=== PATIENT | male | born 1960 | race Caucasian/White ===

== ENCOUNTER → 2017-12-12 07:05 | Outpatient (CLI) | payer OTHER, SELFPAY ==
[2017-12-12 08:10] LABS: AST(SGOT) 14 U/L (15-37); Alanine Aminotransfer ALT/SGPT 25 U/L (16-61); Cholesterol 172 mg/dL (200); High Density Lipoprotein 33 mg/dL; Triglycerides 113 mg/dL; Very Low Density Lipoprotein 23 mg/dL (5-40)
== END ==
PROVIDERS: Family Provider Family Medicine; PCP Family Medicine; Referring Provider Family Medicine; Visit Provider Family Medicine
DX: Z00.00 Encounter for general adult medical examination without abnormal findings (principal); Z12.5 Encounter for screening for malignant neoplasm of prostate; E78.00 Pure hypercholesterolemia, unspecified
CPT/HCPCS: 36415; 80061; 84153; 84450; 84460; G0103

== ENCOUNTER → 2018-12-03 16:58 | Outpatient (CLI) | payer OTHER, SELFPAY ==
[2016-03-21 19:09] VITALS: BMI 29.2
--- NOTE | 2018-12-03 17:01 | RAD_ITS ---
HISTORY: GROIN AND LATERAL PAIN, NKI EXAMINATION/TECHNIQUE: XR AP pelvis and left hip 3 views COMPARISON: None FINDINGS: No fracture, acute disease, or suspicious lesion. The sacroiliac and hip joints appear preserved. No bony erosions. Pelvic phleboliths. Incomplete fusion of the posterior elements of L5. RAD/HIP, UNI W/ Pelvis 2-3 Views IMPRESSION: Negative exam. Normal left hip. at 2250 Reported and signed by: Lupillo Stahl MD Electronically Signed: Lupillo Stahl, at 22:48 EDT Tel , Service support ,
--- NOTE | 2018-12-03 17:01 | RAD_ITS ---
STUDY: X-RAY - LEFT KNEE REASON FOR EXAM: Male, 58 years old. Left knee pain TECHNIQUE: 4 view(s) of the knee. COMPARISON: 06/21/2015 FINDINGS: Normal visualized distal femur. Normal visualized proximal tibia and fibula. Normal proximal tibiofibular articulation. Mild patella chester. Minimal degenerative change of the medial compartment and mild degenerative change of the patellofemoral compartment. Normal lateral femorotibial compartment. No knee joint effusion. The soft tissue structures are unremarkable. RAD/Knee 4 or More Views IMPRESSION: Medial and patellofemoral compartment osteoarthritic change with mild associated patella chester, all unchanged from prior imaging. Electronically Signed: Justo Mitchell MD at 4:35 EDT Tel , Service support ,
== END ==
PROVIDERS: Family Provider Family Medicine; PCP Family Medicine; Referring Provider Family Medicine; Visit Provider Family Medicine
DX: M25.552 Pain in left hip (principal); M17.12 Unilateral primary osteoarthritis, left knee
CPT/HCPCS: 73502; 73564

== ENCOUNTER → 2019-03-03 07:01 | Outpatient (CLI) | payer OTHER, SELFPAY ==
[2019-03-03 10:54] LABS: Cholesterol 182 mg/dL (200); High Density Lipoprotein 38 mg/dL; PSA,Total - Annual Screen 4.15 ng/mL (0.00-4.00); Triglycerides 132 mg/dL; Very Low Density Lipoprotein 26 mg/dL (5-40)
== END ==
PROVIDERS: Family Provider Family Medicine; PCP Family Medicine; Referring Provider Family Medicine; Visit Provider Family Medicine
DX: Z00.00 Encounter for general adult medical examination without abnormal findings (principal)
CPT/HCPCS: 36415; 80061; 84153; G0103

== ENCOUNTER 2019-04-29 05:23 | Day surgery (SDC) | payer OTHER, SELFPAY ==
[2019-04-29] VITALS (11 sets, daily range): BP systolic 98–152; BP diastolic 22–96; PULSE 56–63; RESP 16; TEMP 36.3–36.7; O2SAT 94–100; BMI 27.9
[2019-04-29] MEDS: Lactated Ringers 1,000 ML 75 ML IV (06:06)
--- NOTE | 2019-04-29 06:11 | PCM.HP.STD ---
Problem List (1) Screening for intestinal cancer Status: Acute History of Present Illness Date of Admission: 04/29/19 The patient is a 58 year old M who presents for screening colonoscopy today. He has had a previous colonoscopy about 10 years ago. He denies bright red blood per rectum or melena. He has not any abdominal pain. No change in body habitus. No family or personal history of colon polyps or colon cancer. He has had a previous history of lower extremity deep venous thrombosis. That is not current and is not currently on any anticoagulants Past Medical History Allergies No Known Allergies Allergy (Verified 04/26/19 12:01) Home Medications: Ambulatory Orders Medication Instructions Recorded Multivitamins,Therapeutic 1 tablet PO DAILY 03/06/13 [Multivitamin] Aspirin 81 mg PO QHS 03/21/16 Smoking Status: Never smoker Tobacco Use: Non-smoker Review of Systems Constitutional: Denies: Anorexia Cardiovascular: Denies: Chest Pain Gastrointestinal: Denies: Abdominal Pain, Melena Endocrine: Denies: Change in Body Habitus VTE Information - Inpt Only VTE Present on Admission: No Patient Problems: Active and Suspected Problems Screening for intestinal cancer (Acute) - Physical Exam Vitals/I&O's: Vital Signs Temp Pulse Resp BP Pulse Ox 97.7 F L 61 16 126/83 H 100 04/29/19 05:45 04/29/19 05:45 04/29/19 05:45 04/29/19 05:45 04/29/19 05:45 Oxygen Delivery Method Room Air Weight: 200 lb 2.876 oz Body Mass Index (BMI) 27.9 General: Alert, Oriented x3, Cooperative, No apparent distress HEENT: Atraumatic Oral: Moist Mucosa Lungs: Clear to auscultation, Normal air movement Cardiovascular: Regular rate, Regular Rhythm Abdomen: Bowel Sounds Present, Soft, Non Tender, Non-Distended Extremities: No Calf Tenderness Psych/Mental Status: Normal Affect Current Medications Lactated Ringer's () 1,000 mls @ 75 mls/hr IV .[id number] [facility] Last Admin: 04/29/19 06:06 Dose: 75 mls/hr Documented by: Assessment/Plan All Active Problems Screening for intestinal cancer (Acute) I recommend to the patient a screening colonoscopy with possible biopsy or polypectomy is indicated. He is aware of the technique, benefit, risks, alternatives. He has had an opportunity to ask and have questions answered. He presents via our open access program today. Jose Wright M.D., F.A.C.S.
--- NOTE | 2019-04-29 06:30 | COLBX_PTH ---
PATIENT: PRASHANT AUGUST LOC: EN U#:[id number] AGE/SX: 58/M ROOM: RE04/29/[address]: Dr. Jose Wright MD : 1960 BED: DIS: 04/29/2019 SPEC #: [id number] RECD: 04/29/19 11:23 STATUS: SONALI JERONIMO #: [id number] MARIA A: 04/29/19 06:[address]: Jose Wright DEPT: SURGICAL PATHOLOGY RECD BY: Miki Rahman ENTERED: 04/29/19 13:18 SP TYPE: COLON BX OTHR DR: Dr. Paige Vale MD Tissues: Transverse colon Procedures: Surgery Specimen Level IV HEADER OPERATION: Colonoscopy - open access (MOD) PRE-OP DIAGNOSIS: Screening TISSUE SUBMITTED: Transverse colon biopsy MICROSCOPIC DIAGNOSIS Transverse colon, biopsy: Tubular adenoma. AM:gabriela 05/02/19 MICROSCOPIC DESCRIPTION Slides are reviewed. GROSS DESCRIPTION Received in fixative is one container labeled with the patient's name and designated transverse colon biopsy. The specimen consists of two irregular fragments of light villaseñor soft tissue that in aggregate measure 0.5 x 0.5 x 0.1 cm. The specimen is totally submitted in one cassette. / AM:gabriela 04/29/19 TC:5 CPT: 23702
--- NOTE | 2019-04-29 06:51 | OP.CCLET_ITS ---
04/29/2019 Paige Vale [address] [place] [address] Re : Colonoscopy procedure for Javon Robles Dear Dr. Vale This procedure was performed on Monday, April 29, 2019. My impressions and recommendations are as follows: Impressions : - Minimally symmetric enlarged prostate found on digital rectal exam. - One 4 mm polyp in the mid transverse colon, removed with a cold biopsy forceps. Resected and retrieved. - Diverticulosis in the sigmoid colon. Recommendations : - Discharge patient to home. - Resume previous diet. - Continue present medications. - Repeat colonoscopy in 5 years for surveillance based on pathology results. - Telephone my office for pathology results in 1 week. My findings are described in the full procedure note, which is enclosed. If I can be of further assistance, please feel free to contact me at Doctor phone number(s): Work: . Sincerely, Jose Wright MD 04/29/2019 6:50:30 AM This report has been signed electronically.
--- NOTE | 2019-04-29 06:51 | OP.COLON_ITS ---
Patient Name: Javon Robles Procedure Date: 04/29/2019 6:10 AM Date of : 1960 Age: 58 Procedure: Colonoscopy Indications: Screening for colorectal malignant neoplasm Providers: Jose Wright MD Referring MD: Paige Vale Medicines: Midazolam 4 mg IV, Meperidine 100 mg IV Patient Profile: Last Colonoscopy: 10 years ago. Complications: No immediate complications. Procedure: Pre-Anesthesia Assessment: - Prior to the procedure, a History and Physical was performed, and patient medications and allergies were reviewed. The patient's tolerance of previous anesthesia was also reviewed. The risks and benefits of the procedure and the sedation options and risks were discussed with the patient. All questions were answered, and informed consent was obtained. Prior Anticoagulants: The patient has taken no previous anticoagulant or antiplatelet agents. ASA Grade Assessment: II - A patient with mild systemic disease. After reviewing the risks and benefits, the patient was deemed in satisfactory condition to undergo the procedure. After I obtained informed consent, the scope was passed under direct vision. Throughout the procedure, the patient's blood pressure, pulse, and oxygen saturations were monitored continuously. The pediatric colonoscope was introduced through the anus and advanced to the cecum, identified by appendiceal orifice and ileocecal valve. The colonoscopy was performed without difficulty. The patient tolerated the procedure well. The quality of the bowel preparation was adequate to identify polyps. The ileocecal valve and the appendiceal orifice were photographed. Moderate Sedation: Moderate (conscious) sedation was personally administered by the endoscopist. The following parameters were monitored: oxygen saturation, heart rate, blood pressure, and response to care. Total physician intraservice time was 15 minutes. Scope In: 6:31:47 AM Scope Withdrawal Time 0 hours 8 minutes 57 seconds Scope Out: 6:45:31 AM Total Procedure Duration Time 0 hours 13 minutes 44 seconds Findings: The digital rectal exam findings include enlarged prostate. A 4 mm polyp was found in the mid transverse colon. The polyp was sessile. The polyp was removed with a cold biopsy forceps. Resection and retrieval were complete. Scattered diverticula were found in the sigmoid colon. Impression: - Minimally symmetric enlarged prostate found on digital rectal exam. - One 4 mm polyp in the mid transverse colon, removed with a cold biopsy forceps. Resected and retrieved. - Diverticulosis in the sigmoid colon. Recommendation: - Discharge patient to home. - Resume previous diet. - Continue present medications. - Repeat colonoscopy in 5 years for surveillance based on pathology results. - Telephone my office for pathology results in 1 week. Procedure Code(s): --- Professional --- 78435, Colonoscopy, flexible; with biopsy, single or multiple 21354, 59, Moderate sedation services provided by the same physician or other qualified health transitional care liaison performing the diagnostic or therapeutic service that the sedation supports, requiring the presence of an independent trained observer to assist in the monitoring of the patient's level of consciousness and physiological status; initial 15 minutes of intraservice time, patient age 5 years or older Diagnosis Code(s): --- Professional --- Z12.11, Encounter for screening for malignant neoplasm of colon D12.3, Benign neoplasm of transverse colon (hepatic flexure or splenic flexure) N40.0, Benign prostatic hyperplasia without lower urinary tract symptoms K57.30, Diverticulosis of large intestine without perforation or abscess without bleeding CPT copyright 2017 [employer]. All rights reserved. The codes documented in this report are preliminary and upon batch trucker review may be revised to meet current compliance requirements. Jose Wright MD 04/29/2019 6:50:30 AM This report has been signed electronically. Number of Addenda: 0 Note Initiated On: 04/29/2019 6:10 AM
== END 2019-04-29 07:40 | disposition home or self-care (01) ==
LOC: EN 05:23 → AC 05:25
PROVIDERS: Family Provider Family Medicine; PCP Family Medicine; Referring Provider Family Medicine; Visit Provider Surgery
PROC: 0DJD8ZZ Inspection of Lower Intestinal Tract, Via Natural or Artificial Opening Endoscopic (ICD-10-PCS; CPT 45378; principal; 2019-04-29 06:25)
DX: Z12.11 Encounter for screening for malignant neoplasm of colon (principal); D12.3 Benign neoplasm of transverse colon; N40.0 Benign prostatic hyperplasia without lower urinary tract symptoms; K57.30 Diverticulosis of large intestine without perforation or abscess without bleeding; Z79.82 Long term (current) use of aspirin
CPT/HCPCS: 45380; 88305; 99152; 99153; J7120

== ENCOUNTER → 2019-05-19 07:02 | Outpatient (CLI) | payer OTHER, SELFPAY ==
[2019-04-29 05:45] VITALS: BMI 27.9
[2019-05-19 10:16] LABS: PSA,Total- Diagnostic 3.11 ng/mL (0.0-4.0)
== END ==
PROVIDERS: PCP Family Medicine; Referring Provider Urology; Visit Provider Urology
DX: R97.20 Elevated prostate specific antigen [PSA] (principal)
CPT/HCPCS: 36415; 84153

== ENCOUNTER → 2020-06-02 07:02 | Outpatient (CLI) | payer OTHER, SELFPAY ==
[2019-04-29 05:45] VITALS: BMI 27.9
[2020-06-02 08:04] LABS: PSA,Total- Diagnostic 4.28 ng/mL (0.0-4.0)
== END ==
LOC: MTLAB 07:04 → LAB 07:08
PROVIDERS: PCP Family Medicine; Referring Provider Urology; Visit Provider Urology
DX: R97.20 Elevated prostate specific antigen [PSA] (principal)
CPT/HCPCS: 36415; 84153

== ENCOUNTER → 2020-06-26 | Outpatient (CLI) | payer OTHER, SELFPAY ==
[2019-04-29 05:45] VITALS: BMI 27.9
--- NOTE | 2020-06-26 | IMM_PTH ---
PATIENT: PRASHANT AUGUST LOC: [facility] U#:[id number] AGE/SX: 59/M ROOM: RE06/26/[address]: Dr. Nick Paul MD : 1960 BED: DIS: 06/26/2020 SPEC #: [id number] RECD: 06/27/20 14:22 STATUS: SONALI REQ #: [id number] MARIA A: 06/26/20 00:[address]: Nick Paul DEPT: IMMUNOHISTOCHEMISTRY RECD BY: Venessa Silva ENTERED: 06/27/20 14:23 SP TYPE: IMMUNO OTHR DR: Dr. Paige Vale MD Tissues: A - PROSTATE RIGHT C - PROSTATE RIGHT D - PROSTATE LEFT F - PROSTATE LEFT Procedures: 34BE12 (add) P40 (add) 34BE12 (initial) PHYSICIAN & INSTITUTION [facility] [id number] SPECIMEN INFORMATION: Tissue Source: A - Right apex, C - Right base, D - Left apex, F - Left base Clinical Info: Elevated PSA Specimen Number: [id number] A, C, D & F CPT code: 76439, 63306 x7 METHODOLOGY: Deparaffinized sections of prefer/formalin-fixed tissue or PAP/DQ stained slides are incubated with monoclonal/polyclonal antibodies/oligonucleotide probes. Localization is made via biotin free immunoperoxidase method. Appropriate controls are performed and reacted as expected. Results on target cell population are indicated in the following table: RESULTS: ANTIBODY / CLONE RESULT Block A P40 (BC28) negative 34BE12 (34BE12) negative Block C P40 (BC28) positive 34BE12 (34BE12) positive Block D P40 (BC28) negative 34BE12 (34BE12) negative Block F P40 (BC28) negative 34BE12 (34BE12) negative These tests were developed and their performance characteristics determined by [facility]. They may not have been cleared or approved by the U.S. Food and Drug Administration. The FDA has determined that such clearance or approval is not necessary. The above immunohistochemical/dualISH markers are ordered and reviewed by the Pathologist. INTERPRETATION: A. Right prostate, apex, core biopsy: A minute focus of adenocarcinoma. C. Right prostate, base, core biopsy: Focal high-grade prostatic intraepithelial neoplasia (HGPIN). D. Left prostate, apex, core biopsy: Adenocarcinoma. F. Left prostate, base, core biopsy: Adenocarcinoma. SJ:gabriela 06/28/2020
--- NOTE | 2020-06-26 08:00 | PROSBIL_PTH ---
PATIENT: PRASHANT AUGUST LOC: [facility] U#:[id number] AGE/SX: 59/M ROOM: RE06/26/[address]: Dr. Nick Paul MD : 1960 BED: DIS: 06/26/2020 SPEC #: [id number] RECD: 06/26/20 12:58 STATUS: SONALI REQ #: [id number] MARIA A: 06/26/20 08:[address]: Nick Paul DEPT: SURGICAL PATHOLOGY RECD BY: Sailaja Turner ENTERED: 06/26/20 12:58 SP TYPE: PROST BX JELENA DR: Dr. Paige Vale MD Tissues: A - PROSTATE RIGHT B - PROSTATE RIGHT C - PROSTATE RIGHT D - PROSTATE LEFT E - PROSTATE LEFT F - PROSTATE LEFT Procedures: PROSTATE BX HEADER OPERATION: Prostate biopsy PRE-OP DIAGNOSIS: Elevated PSA TISSUE SUBMITTED: A - Right apex, B - Right mid, C - Right base, D - Left apex, E - Left mid, F - Left base MICROSCOPIC DIAGNOSIS A. Right prostate, apex, core biopsy: A minute focus of prostatic adenocarcinoma. Abel grade: 4+3=7 Number of cores involved: 1/2 Proportion of tissue involved: <5% Perineural invasion: Not identified. Greatest tumor length: <0.1 cm Focal mild chronic inflammation. See comment. B. Right prostate, mid, core biopsy: Focal high-grade prostatic intraepithelial neoplasia (HGPIN). C. Right prostate, base, core biopsy: Focal high-grade prostatic intraepithelial neoplasia (HGPIN). See comment. D. Left prostate, apex, core biopsy: Prostatic adenocarcinoma. Abel grade: 3+3=6 Number of cores involved: 1/2 Proportion of tissue involved: <5% Perineural invasion: Not identified. Greatest tumor length: 0.1 cm Focal high-grade prostatic intraepithelial neoplasia (HGPIN). See comment. E. Left prostate, mid, core biopsy: Focal high-grade prostatic intraepithelial neoplasia (HGPIN). F. Left prostate, base, core biopsy: Prostatic adenocarcinoma. Abel grade: 3+3=6 Number of cores involved: 1/2 Proportion of tissue involved: <5% Perineural invasion: Not identified. Greatest tumor length: 0.1 cm Focal high-grade prostatic intraepithelial neoplasia (HGPIN). See comment. SJ:gabriela 06/27/2020 COMMENT A, C, D & F - Immunohistochemistry ([id number]) supports the above diagnosis. Case has been reviewed in consultation with Dr. De La Garza who concurs with the above diagnosis. IDC:AM MICROSCOPIC DESCRIPTION Slides are reviewed. GROSS DESCRIPTION A - Received is one container designated prostate, right apex. The specimen consists of two elongated fragments of light villaseñor-white soft tissue each measuring 1 cm in length and 0.1 cm in diameter. The specimen is totally submitted in one cassette. B - Received is one container designated prostate, right mid. The specimen consists of two elongated fragments of light villaseñor-white soft tissue each measuring 1.5 cm in length and 0.1 cm in diameter. The specimen is totally submitted in one cassette. C - Received is one container designated prostate, right base. The specimen consists of two elongated fragments of light villaseñor-white soft tissue each measuring 1 cm in length and 0.1 cm in diameter. The specimen is totally submitted in one cassette. D - Received is one container designated prostate, left apex. The specimen consists of two elongated fragments of light villaseñor-white soft tissue each measuring 1 cm in length and 0.1 cm in diameter. The specimen is totally submitted in one cassette. E - Received is one container designated prostate, left mid. The specimen consists of two elongated fragments of light villaseñor-white soft tissue each measuring 1 cm in length and 0.1 cm in diameter. The specimen is totally submitted in one cassette. F - Received is one container designated prostate, left base. The specimen consists of two elongated fragments of light villaseñor-white soft tissue each measuring 1 cm in length and 0.1 cm in diameter. The specimen is totally submitted in one cassette. / AM:gabriela 06/26/20 TC:0 [facility]: [id number] [phone]
== END | disposition home or self-care (01) ==
LOC: LABSPEC 11:35
PROVIDERS: PCP Family Medicine; Referring Provider Urology; Visit Provider Urology
DX: R97.20 Elevated prostate specific antigen [PSA] (principal)
CPT/HCPCS: 88305; 88341; 88342; G0416

== ENCOUNTER → 2020-08-30 10:13 | Outpatient (CLI) | payer OTHER, SELFPAY ==
[2019-04-29 05:45] VITALS: BMI 27.9
== END ==
PROVIDERS: PCP Family Medicine; Referring Provider Family Medicine; Visit Provider Family Medicine
DX: U07.1 COVID-19 (principal)
CPT/HCPCS: 86769

== ENCOUNTER 2020-10-12 19:44 | Emergency (ER) | payer OTHER, SELFPAY ==
[2019-04-29 05:45] VITALS: BMI 27.9
[2020-10-12 19:45] VITALS: BP 134/96; PULSE 85; RESP 15; TEMP 36.1; O2SAT 95; BMI 29.2
--- NOTE | 2020-10-12 21:55 | US_ITS ---
INDICATION: LLE PAIN EXAMINATION: US Venous Duplex LE Unilat / Limited TECHNIQUE: Vu scale, pulse wave, and color flow Doppler imaging was performed of the lower extremity venous system. The left greater saphenous, common femoral, femoral, and popliteal veins were interrogated. COMPARISON: None. FINDINGS: There is normal compression, augmentation, and signal throughout the visualized deep lower extremity veins. No mass or fluid collection. US/Venous Duplex Imag/Limited/Uni IMPRESSION: No sonographic evidence of deep venous thrombosis. Electronically Signed: Magan Umanzor MD at 22:54 EDT Tel , Service support ,
--- NOTE | 2020-10-12 22:00 | ED.VIS.LOWEX ---
HPI History of Present Illness Chief Complaint: Lower Extremity Injury Informant: patient Onset/Context/Timing Onset: Yesterday Context: Gradual Onset Timing: Continuous Quality of Pain: Dull (sore) Location: left calf Current Severity: Mild Maximum Severity: Mild Worsened by: walking, palpation Relieved by: rest Associated Symptoms Associated Symptoms: Negative for Parasthesia, Weakness and Loss of Funtion Narrative Narrative: Patient developed spontaneous pain in his left calf and mild swelling throughout the left lower leg to the knee, since yesterday. Earlier this week he had seeds for prostate cancer placed by radiation oncology at [facility]. He has been mobile without immobilization. The symptoms he has felt before with prior DVTs, at least one of them was provoked by travel in the past. He does not have a known history of clotting disorder. He takes baby aspirin daily no anticoagulants at this time. He is otherwise feeling well without any chest pain, shortness of breath, lightheadedness, syncope, palpitations, or other systemic symptoms. [facility] Medical History Prostate cancer Home Medications multivitamin with folic acid [Thera] 1 tab PO DAILY 03/06/13 [History Last Taken Unknown] aspirin 81 mg PO QHS 03/21/16 [History Last Taken Unknown] Allergy/AdvReac Type Severity Reaction Status Date / Time No Known Allergies Allergy Verified 10/12/20 19:47 Social History Smoking Status: Never smoker ROS ROS ED Constitutional Constitutional ED: Denies chills or fever(s) Cardiovascular Cardiovascular: Reports leg edema Musculoskeletal Musculoskeletal: Reports extremity pain; Denies neck pain Integumentary Denies Abrasions, rash or wounds Neurologic Neurologic: Denies paresthesias or weakness EXAM Physical Exam Const Vital Signs: 10/12/20 19:45 Temperature 96.9 F L Temperature Source Temporal Pulse Rate 85 Respiratory Rate 15 Blood Pressure 134/96 H Blood Pressure Mean 108 Pulse Ox 95 Oxygen Delivery Method Room Air Positive well nourished and well developed General Appearance ED: well developed and NAD Neck full ROM and supple Back/Spine normal ROM and normal to inspection Extremity normal to inspection and full ROM Extremity Narrative: Mild tenderness left calf. No skin abnormalities, color changes, palpable cords throughout the left lower extremity. No objective edema noted. Neuro oriented x3, no focal motor deficits and no sensory deficits noted Sensorium / Orientation: alert Psych mental status grossly normal and thought process normal Skin no wounds Rashes: no rashes MDM MDM MDM Narrative Medical decision making narrative: Venous duplex ultrasound of the left lower extremity was obtained in the emergency department and is negative for any deep or superficial venous abnormalities. Patient was reassured, offered analgesics, and outpatient follow-up. Discharge Plan Triage Chief Complaint: Lower Extremity Injury ED Provider: Chau Chang Dx/Rx/DC Orders Clinical Impression: Acute pain of left lower extremity Instructions: ED Muscle Strain, Extremity Prescriptions: No Action multivitamin with folic acid [Thera] 1 TABLET tablet 1 tab PO DAILY RF: 0 aspirin 81 MG Tab.Chew 81 mg PO QHS RF: 0 Primary Care Provider: Paige Vale Referrals: Paige Vale MD [Primary Care Provider] - As Needed Disposition Disposition: Home, Self Care
[2020-10-12 23:14] VITALS: RESP 16
== END 2020-10-12 23:15 | disposition home or self-care (01) ==
LOC: ED 23:02
PROVIDERS: Emergency Provider Emergency Medicine; PCP Family Medicine
DX: M79.662 Pain in left lower leg (principal); C61 Malignant neoplasm of prostate; Z79.82 Long term (current) use of aspirin; Z86.718 Personal history of other venous thrombosis and embolism
CPT/HCPCS: 93971; 99282

== ENCOUNTER → 2020-12-25 07:08 | Outpatient (CLI) | payer OTHER, SELFPAY ==
[2020-12-25 10:27] LABS: PSA,Total- Diagnostic 4.51 ng/mL (0.0-4.0)
== END ==
PROVIDERS: PCP Family Medicine
DX: C61 Malignant neoplasm of prostate (principal)
CPT/HCPCS: 36415; 84153

== ENCOUNTER → 2021-03-21 07:01 | Outpatient (CLI) | payer OTHER, SELFPAY ==
[2021-03-21 10:45] LABS: PSA,Total - Annual Screen 6.14 ng/mL (0.00-4.00)
[2021-03-21 15:20] LABS: PSA,Total- Diagnostic 6.14 ng/mL (0.0-4.0)
== END ==
PROVIDERS: PCP Family Medicine
DX: C61 Malignant neoplasm of prostate (principal)
CPT/HCPCS: 36415; 84153; G0103

== ENCOUNTER → 2022-05-15 | Outpatient (CLI) | payer OTHER, SELFPAY ==
[2022-05-15 10:30] LABS: Cholesterol 182 mg/dL (200); High Density Lipoprotein 37 mg/dL; Triglycerides 141 mg/dL; Very Low Density Lipoprotein 28 mg/dL (5-40)
== END | disposition home or self-care (01) ==
PROVIDERS: PCP Family Medicine; Referring Provider Family Medicine; Visit Provider Family Medicine
DX: E78.00 Pure hypercholesterolemia, unspecified (principal)
CPT/HCPCS: 36415; 80061

== ENCOUNTER 2024-05-13 06:56 | Day surgery (SDC) | payer OTHER, SELFPAY ==
[2024-05-13] VITALS (7 sets, daily range): BP systolic 99–140; BP diastolic 73–91; PULSE 52–68; RESP 16; TEMP 36.3–36.6; O2SAT 95–99; BMI 38.8
--- NOTE | 2024-05-13 07:51 | PCM.PRE.AN2 ---
ASA Classification* ASA Classification ASA Classification: 2 Assessment & Plan Anesthesia* Anesthesia Assessment Anesthesia Assessment: Discussed sedation and/or anesthesia options, risks, benefits, and alternatives with patient/parents/legal guardian/POA. Questions invited. The patient/parents/legal guardian/POA seems to understand and agrees to proceed with anesthesia plan. Reviewed the physical assessment, medical history, allergy history and patient home medications list prior to surgery/procedure/anesthetic and documented any changes. Performed airway and anesthesia risk assessments. Anesthesia Type Anesthesia Type: MAC History Source History Obtained from:: Patient and Chart Anesthesia Focused Assessment* Temperature: 97.3 F Pulse Rate: 68 Blood Pressure: 140/91 Respiratory Rate: 16 Pulse Ox: 99 Oxygen Delivery Method: Room Air Airway Assessment Mouth opens: >3 cm Mallampati Score: II Teeth Condition: Caps/Crowns (Patient has several crowns. 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 When Was Last Pacemaker Check QUESTION #4 FULL TEXT: You/Your Family Experience fever (hyperthermia) with Anesthesia Last Oral Intake Last Oral intake: Last Oral Intake NPO since 04:00 05/13/24 07:37 Meds taken in AM with sips of water? Meds patient instructed to take am of surgery Any additional information?: Yes NPO since: 04:00 (Patient finished prep at 4 AM.) PONV PONV - circle saw operator: PONV - circle saw operator Female No 05/11/24 10:19 HX of Motion Sickness No 05/11/24 10:19 HX of N/V After Surgery No 05/11/24 10:19 Non-Smoker Yes 05/11/24 10:19 Duration of Surgery greater No 05/11/24 10:19 than 60 minutes Number of Risk Factors 1 05/11/24 10:19 PONV Score Low Risk 05/11/24 10:19 Height & Weight Height & Weight: Anesthesia: Height & Weight Height 5 ft 1 in 05/13/24 07:37 Weight: 93.2 kg 05/13/24 07:37 Body Mass Index (BMI) 38.8 05/13/24 07:37 Respiratory Assessment Respiratory Assessment - circle saw operator: Respiratory Tract Infection Hx - circle saw operator Hx Respiratory Tract Infection No 05/11/24 10:19 STOP Sleep Apnea STOP Sleep Apnea - circle saw operator: STOP Sleep Apnea - circle saw operator Hx Hypertension No 05/11/24 10:19 Hx Sleep Apnea No 05/11/24 10:19 CPAP BIPAP Do you snore loudly (louder No 05/11/24 10:19 than talking or can be heard Do you often feel tired/ No 05/11/24 10:19 fatigued/ sleepy during daytime? Has anyone observed you stop No 05/11/24 10:19 breathing during sleep? STOP Results Negative 05/11/24 10:19 QUESTION #5 FULL TEXT : Do you snore loudly (louder than talking or can be heard through closed doors)? 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 Specify any problems Hx of Preganancy in last 3 N/A 05/11/24 10:19 Months Nurse Filling Out Transfusion NBUCHER 05/11/24 10:19 & Questions: Date: 05/11/24 05/11/24 10:19 Time: 10:19 05/11/24 10:19 Patient unable to answer at this time (ie. confused, unrespo /Reproduction History /Reproductive History - circle saw operator: /Reproductive Hx- circle saw operator Hx Now No 05/11/24 10:19 Gestational Age (in weeks): EDC: Hx Hx Para Hx Section SAB No 05/11/24 10:19 PFSH Medical History Wears glasses Cancer Prostate disease DVT (deep venous thrombosis) Non-smoker Hx of colonic polyp Prostate cancer Home Medications ?Medication ?Instructions ?Recorded ?Last Taken ?Type multivitamin with folic acid 400 1 tab PO DAILY 03/06/13 Unknown History mcg tablet (Thera) aspirin 81 mg chewable tablet 81 mg PO QHS 03/21/16 Unknown History Allergy/AdvReac Type Severity Reaction Status Date / Time No Known Allergies Allergy Verified 05/13/24 07:35 Surgical History History of prostate surgery History of cardiac catheterization History of abdominal surgery Hx of colonoscopy Social History household members: spouse current occupational status: employed Smoking Status: Never smoker substance use type: does not use Review of Systems (Anesthesia) ROS Narrative System reviewed and no additional complaints, except as documented.
--- NOTE | 2024-05-13 08:18 | PCM.HP.STD ---
[facility] - General General Date of Admission: 05/13/24 Date of Service: 05/13/24 Chief Complaint: Screening colonoscopy HPI Narrative PRASHANT AUGUST, is a 63 M who presents for screening colonoscopy. He gets colonoscopies typically every 5 years. It sounds as though years ago there was concern about possible lymphoma. He believes he may have had a polyp at 1 point. He has had about 2 or 3 colonoscopies in his lifetime. He denies any recent GI issues or problems. He does admit to having hemorrhoid surgery in the past as well. He denies any current GI symptoms or problems such as blood in his stools or black tarry stools etc. No constipation or diarrhea. [facility] Medical History Wears glasses Cancer Prostate disease DVT (deep venous thrombosis) Non-smoker Hx of colonic polyp Prostate cancer Home Medications ?Medication ?Instructions ?Recorded ?Last Taken ?Type multivitamin with folic acid 400 1 tab PO DAILY 03/06/13 Unknown History mcg tablet (Thera) aspirin 81 mg chewable tablet 81 mg PO QHS 03/21/16 Unknown History Allergy/AdvReac Type Severity Reaction Status Date / Time No Known Allergies Allergy Verified 05/13/24 07:35 Surgical History History of prostate surgery History of cardiac catheterization History of abdominal surgery Hx of colonoscopy Social History household members: spouse current occupational status: employed Smoking Status: Never smoker substance use type: does not use Vital Signs Vital Signs Vital Signs: 05/13/24 07:37 05/13/24 07:37 05/13/24 07:57 Temperature 97.3 F L 97.3 F L Temperature Source Temporal Pulse Rate 68 68 Respiratory Rate 16 16 Respiratory Pattern Normal Blood Pressure 140/91 H 140/91 H Blood Pressure Mean 107 Blood Pressure Source Monitor Blood Pressure Position Semi-Fowlers Blood Pressure Location Right Arm Pulse Ox 99 99 Oxygen Delivery Method Room Air Room Air Weight Weight: 205 lb 7.533 oz Body Mass Index (BMI) 38.8 Physical Exam Const alert, oriented x3 and no apparent distress Assessment & Plan Assessment/Plan (1) Encounter for screening for malignant neoplasm of colon: PLAN: Plan The patient is a 63-year-old male who is being seen today to undergo colonoscopy.. We discussed the details of the planned procedure as well as the risks benefits and alternatives. He wishes to proceed. This will begin momentarily Charges/Coding Visit Charges Inpatient E&M: 33650 Init Hosp L1
--- NOTE | 2024-05-13 08:58 | OP.COLON_ITS ---
Patient Name: Javon Robles Procedure Date: 05/13/2024 8:13 AM Date of : 1960 Age: 63 Procedure: Colonoscopy Indications: High risk colon cancer surveillance: Personal history of colonic polyps Providers: Torin Desir MD Referring MD: Paige Vale Medicines: Monitored Anesthesia Care Patient Profile: Refer to note in patient chart for documentation of history and physical. Last Colonoscopy: 5 years ago. Complications: No immediate complications. Estimated blood loss: None. Procedure: Pre-Anesthesia Assessment: - Prior to the procedure, a History and Physical was performed, and patient medications and allergies were reviewed. The patient's tolerance of previous anesthesia was also reviewed. The risks and benefits of the procedure and the sedation options and risks were discussed with the patient. All questions were answered, and informed consent was obtained. Prior Anticoagulants: The patient has taken no anticoagulant or antiplatelet agents. ASA Grade Assessment: II - A patient with mild systemic disease. After reviewing the risks and benefits, the patient was deemed in satisfactory condition to undergo the procedure. After I obtained informed consent, the scope was passed under direct vision. Throughout the procedure, the patient's blood pressure, pulse, and oxygen saturations were monitored continuously. The adult colonoscope was introduced through the anus and advanced to the cecum, identified by appendiceal orifice and ileocecal valve. The ileocecal valve, appendiceal orifice, and rectum were photographed. The entire colon was well visualized. The colonoscopy was performed without difficulty. The patient tolerated the procedure well. The quality of the bowel preparation was adequate. Moderate Sedation: See the other procedure note for documentation of moderate sedation with intraservice time. Scope In: 8:30:35 AM Scope Withdrawal Time 0 hours 12 minutes 21 seconds Scope Out: 8:50:50 AM Total Procedure Duration Time 0 hours 20 minutes 15 seconds Findings: The perianal and digital rectal examinations were normal. Internal hemorrhoids were found during endoscopy. The hemorrhoids were mild. The exam was otherwise without abnormality on direct and retroflexion views. Impression: - Internal hemorrhoids. - The examination was otherwise normal on direct and retroflexion views. - No specimens collected. Recommendation: - Discharge patient to home (ambulatory). - High fiber diet indefinitely. - Repeat colonoscopy in 5 years for surveillance. - Return to my office PRN. - Continue present medications. Procedure Code(s): --- Professional --- 64157, Colonoscopy, flexible; diagnostic, including collection of specimen(s) by brushing or washing, when performed (separate procedure) Diagnosis Code(s): --- Professional --- Z86.010, Personal history of colonic polyps K64.8, Other hemorrhoids CPT copyright 2021 [employer]. All rights reserved. The codes documented in this report are preliminary and upon loading shovel oiler review may be revised to meet current compliance requirements. Torin Desir MD 05/13/2024 8:57:58 AM This report has been signed electronically. Number of Addenda: 0 Note Initiated On: 05/13/2024 8:13 AM
--- NOTE | 2024-05-13 08:58 | OP.CCLET_ITS ---
05/13/2024 Paige Vale [address] [place] [address] Re : Colonoscopy procedure for Javon Robles Dear Dr. Vale This procedure was performed on Monday, May 13, 2024. My impressions and recommendations are as follows: Impressions : - Internal hemorrhoids. - The examination was otherwise normal on direct and retroflexion views. - No specimens collected. Recommendations : - Discharge patient to home (ambulatory). - High fiber diet indefinitely. - Repeat colonoscopy in 5 years for surveillance. - Return to my office PRN. - Continue present medications. My findings are described in the full procedure note, which is enclosed. If I can be of further assistance, please feel free to contact me at . Sincerely, Torin Desir MD 05/13/2024 8:57:58 AM This report has been signed electronically.
--- NOTE | 2024-05-13 08:59 | PCM.POST.ANE ---
Anesthesia: Postop Eval I Current Vital Signs Temperature: 97.4 F Pulse Rate: 57 Blood Pressure: 103/73 Respiratory Rate: 16 Pulse Ox: 97 Oxygen Delivery Method: Room Air Assessment Airway patent: Yes Spontaneous unlabored respirations: Yes Mental status: Asleep nausea: No Vomiting: No Anesthesia Complication: No Fluid Hydration Crystalloid volume administer (ml): 40 Total IV fluid infused: 40 Progress Note Anesthesia document: Postop Eval 1 completed: Yes
--- NOTE | 2024-05-13 16:15 | PCM.POSTANE2 ---
Anesthesia Postop Eval I Sum Postop Eval Completion status Anesthesia document: Postop Eval 1 completed: Yes Anesthesia Postop Eval I Summary Anesthesia Postop Eval I Summary: Anesthesia Postop Eval I: Assessment Summary Airway patent Yes 05/13/24 09:00 [email or web address] Spontaneous unlabored Yes 05/13/24 09:00 [email or web address] respirations Mental status Asleep 05/13/24 09:00 [email or web address] nausea No 05/13/24 09:00 [email or web address] Vomiting No 05/13/24 09:00 [email or web address] Anesthesia Postop Eval I: Fluid Summary Crystalloid volume administer 40 05/13/24 09:00 [email or web address] (ml) Colloids volume administered ( ml) Blood Product volume administered (ml) Total IV fluid infused 40 05/13/24 09:00 [email or web address] Anesthesia Postop Eval I: Summary Notes Anesthesia Complication No 05/13/24 09:00 [email or web address] Anesthesia Complication Comment: Post-operative progress note Anesthesia: Postop Eval II Evaluation Mental status: Awake and Calm Pain Level: 0 nausea: No Vomiting: No Complications Anesthesia Complication: No
== END 2024-05-13 10:12 | disposition home or self-care (01) ==
LOC: EN 06:57 → AC 06:58
PROVIDERS: PCP Family Medicine; Referring Provider Family Medicine; Visit Provider Surgery
PROC: 0DJD8ZZ Inspection of Lower Intestinal Tract, Via Natural or Artificial Opening Endoscopic (ICD-10-PCS; CPT 45378; principal; 2024-05-13 08:10)
DX: Z12.11 Encounter for screening for malignant neoplasm of colon (principal); K64.8 Other hemorrhoids; Z86.0100 Personal history of colon polyps, unspecified
CPT/HCPCS: 45378; A4216; J2405